=== PATIENT | female | born 1985 | race Two or more races ===

== ENCOUNTER → 2019-05-19 | Outpatient (CLI) | payer OTHER ==
[~2019-05-19] MED LIST: GADOBUTROL 10 MMOL/10 ML VIAL IV ONE
--- NOTE | 2019-05-19 11:32 | RAD ---
Indication: Left ovarian mass TECHNIQUE: Axial, coronal and sagittal T1, axial coronal and sagittal T2 fat sat and postcontrast axial, coronal and sagittal T1 images were obtained. COMPARISON: None FINDINGS: Uterus is anteverted and measures approximately 7.7 x 5.0 x 7.5 cm (longitudinal, AP, transverse). Endometrial stripe measures 6 mm in thickness and is within normal limits. Cervix is within normal limits. No free pelvic fluid or ascites. Right ovary is seen with small follicles. Well-circumscribed high intensity T2/low intensity T1 nonenhancing lesion is seen in the left adnexa without enhancement or mural solid components. Mildly enhancing eccentric mural septations are seen. Urinary bladder is within normal limits. No pelvic or inguinal lymphadenopathy. No enhancing bony lesion. IMPRESSION: Dominant simple appearing left adnexal cyst with small eccentric mural cysts versus thin enhancing septations. Follow-up ultrasound in 3-4 months. If concern for ovarian malignancy is high consider obtaining tumor markers. Electronically signed by: Devyn Dia DO (05/19/2019 11:30 AM) [facility]
== END | disposition home or self-care (01) ==
LOC: MRI 10:08
PROVIDERS: ATTEND Family Medicine
DX: N83.202 Unspecified ovarian cyst, left side (principal)
CPT/HCPCS: 72197; A9585